=== PATIENT | male | born 1975 | race Caucasian/White ===

== ENCOUNTER 2022-09-10 20:29 | Emergency (ER) | payer BC ==
[~2022-09-10] VITALS: Ht 185.4 cm; Wt 109.1 kg
[2022-09-10 20:38] VITALS: TEMP 97
[2022-09-10] MEDS ORDERED: CEPHALEXIN500 M1 PO ×2 (21:31)
[2022-09-10 21:48] VITALS: BP 165/90; PULSE 83
[2022-09-15] MEDS ORDERED: CEPHALEXIN500 M1 PO (07:21)
== END 2022-09-10 21:51 | disposition home or self-care (01) ==
LOC: COL.ER 20:29
DX: S61.412A Laceration without foreign body of left hand, initial encounter (principal); Z23 Encounter for immunization; W26.8XXA Contact with other sharp object(s), not elsewhere classified, initial encounter; Y92.59 Other trade areas as the place of occurrence of the external cause; Y99.0 Civilian activity done for income or pay